=== PATIENT | male | born 1960 | race Caucasian/White ===

== ENCOUNTER 2021-01-30 13:25 | Inpatient (IN) ==
[2021-01-30] MEDS ORDERED: dexAMETHasone**PF** 10 MG/ML VIAL IV ONE (13:55)
[2021-01-30] MEDS ORDERED: FAMOTIDINE 20MG IV PUSH 20 MG/5 ML SYR IV STA (13:55)
[2021-01-30] MEDS ORDERED: TRANEXAMIC ACID / 0.7% NACL 1,000 MG/100 ML BAG IV STA (13:57)
[2021-01-30] MEDS ORDERED: SODIUM CHLORIDE 0.9% 500 ML IV SCH (14:00)
--- NOTE | 2021-01-30 14:16 | Emergency Department Note ---
Impression & Plan Angioedema ED Provider Note NAME: KATINA HAYES AGE: 60 SEX: M : 1960 ARRIVES VIA: Walk-In INFORMANT: Patient, ED PROVIDER(S): Brady Rowe DO CHIEF COMPLAINT: Tongue swelling HPI: The patient is a 60-year-old male who awoke this morning and started noticing tongue swelling. The patient states it is mostly the left side of his tongue. He also notices swelling in the floor of his mouth. He was recently started on a new medication which is an MELVIN inhibitor. He does not have a history of angioedema in the past. He denies having any fever or coughing. He does state he has some difficulty breathing. He denies having any chest pain or lower extremity swelling. He did take 50 mg of Benadryl prior to coming to the emergency department. He did call his primary care physician and was referred to the emergency department. The patient states his symptoms are moderate. They were not improved minimally with the Benadryl. 1500: The patient reports that he was recently started on diclofenac and was taking lisinopril for a long time. Lisinopril is not a new medication for him. But the recent medication that he started on is the new medication. It sounds though it is diclofenac ROS: See above HPI for pertinent positives & negatives. A total of 10 systems reviewed and were otherwise negative. PAST MEDICAL HISTORY: See Below PAST SURGICAL HISTORY: See Below FAMILY HISTORY: See Below SOCIAL HISTORY: See Below HOME MEDICATIONS: See Below ALLERGIES: See Below VITALS: See Below PHYSICAL EXAMINATION: GENERAL: The patient is awake and alert. The patient is somewhat anxious appe aring. EYES: The conjunctivae are clear. The pupils are round and reactive. EARS, NOSE, MOUTH AND THROAT: The nose is without any evidence of any deformity. There is significant angioedema noted of the left side of the tongue. There is some tongue protrusion noted. There is also some swelling of the left side of the floor of the mouth. NECK: The neck is nontender and supple. There is no stridor. RESPIRATORY: Normal respiratory effort is noted there is no evidence of wheezing rhonchi or rales CARDIOVASCULAR: Tachycardic rate with regular rhythm was noted. There was no definite murmur. GASTROINTESTINAL: The abdomen is soft. Abdomen is nontender. MUSCULOSKELETAL/EXTREMITIES: There is no evidence of gross deformity full range of motion is noted in the hips and shoulders. SKIN: There is no obvious evidence of any rash. There are no petechiae, pallor or cyanosis noted. NEUROLOGIC: Patient is awake alert and oriented x3 MEDICAL DECISION MAKING: The patient is a 60-year-old male who presented to the emergency department for an evaluation of angioedema. He was treated in the usual fashion including steroids and H2 blockers. The patient did take antihistamine prior to arrival. The patient was also given TXA. He was reevaluated multiple times. Initially I thought this was secondary to the patient just starting an MELVIN inhibitor however it turns out the patient was on an MELVIN inhibitor for a long time. He was only recently started on diclofenac. I discussed his condition with the airline station agent. I also discussed his case with the on-call [facility]. They have agreed to evaluate the patient in the emergency department for further management and disposition. The patient was reevaluated multiple times. On reevaluation he did feel that he was improving. Triage Nursing notes reviewed. Prior medical records reviewed Vital Signs: reviewed and remarkable for elevated blood pressure. Differential diagnosis: Allergic reaction, anaphylaxis, urticaria, Bolanos-David syndrome, toxic epidermal necrolysis, erythema multiforme, contact dermatitis, cellulitis, angioedema from MELVIN inhibitor as well as other pathologies. ER treatment provided: See below Diagnostics interpreted by me: ECG: EKG was obtained in the emergency department. My interpretation is sinus tachycardia 121 bpm. PVCs were noted. Inferior Q waves were noted. Diffuse ST segment abnormalities were appreciated. This was compared to a tracing from September 10[address]. The ST segment abnormalities appear increased compared to previous. Cardiac Monitoring: An order was placed for continuous cardiac monitoring. The monitor shows a rate of 98 bpm with sinus rhythm. Laboratory studies: As stated above and show below. Imaging studies: See below Consultation(s): 1435: I discussed this case with Yumiko Lopez who is on for the [facility] group. ED COURSE: Procedures: none PDMP:reviewed and no issues Critical Care: I have personally spent greater than 60 minutes of critical care time in the direct management of this patient. This includes bedside care, interpretation of diagnostic studies, and testing, discussion with consultants, patient, and family members, and other required patient management activities. This 60 minutes is in excess of all separately billable procedures. Past Med/Surg History Medical History (Updated 01/31/21 @ 00:23 by Brady Rowe DO) ADD (attention deficit disorder) Bipolar 1 disorder BPH (benign prostatic hyperplasia) Depression High cholesterol Hypertension PFO (patent foramen ovale) Echocardiogram performed 01/16/2021 due to abnormal EKG. Atrial septal aneurysm noted with suggestion of a small PFO. Small right to left shunt t hrough the PFO with Valsalva by saline contrast injection. Patient follows with Dr. Baca of [facility] cardiology. Prostatitis hx of Surgical History History of lumbar laminectomy Hx of colonoscopy Hx of vasectomy Family History Other Hypertension Social History Smoking Status: Current every day smoker Tobacco Type: E-cigarettes / Vaping Cigarettes Per Day: vape every day; Second Hand Exposure: No; Hx Alcohol Use: No Hx Substance Use: No Preferred Language: Japanese Communication Ability: Effective Managed Services Sales Consultant Required: No Beliefs That Will Affect Care: None Current Living Situation: Spouse Feels Safe at Home: Yes Assistive Devices: Denture - Upper and Glasses Allergies Allergies Allergy/AdvReac Type Severity Reaction Status Date / Time No Known Allergies Allergy Unverified 01/30/21 15:23 Home Meds Home Medications Medication Instructions Recorded Confirmed atorvastatin 20 mg PO QAM 09/10/20 01/30/21 bupropion HCl 150 mg PO QAM 09/10/20 01/30/21 hydrochlorothiazide 25 mg PO QAM 09/10/20 01/30/21 lamotrigine 300 mg PO QAM 09/10/20 01/30/21 linaclotide [Linzess] 145 mcg PO QAM 09/10/20 01/30/21 lisinopril 40 mg PO QAM 09/10/20 01/30/21 risperidone 1.5 mg PO HS 09/10/20 01/30/21 tamsulosin 0.8 mg PO QAM 09/10/20 01/30/21 venlafaxine 225 mg PO QAM 09/10/20 01/30/21 atomoxetine [Strattera] 40 mg PO QAM 01/25/21 01/30/21 trazodone 150 mg PO HS 01/25/21 01/30/21 Balance Of Nature 3 tabs PO QAM 01/30/21 01/30/21 acetaminophen [Tylenol Arthritis] 1,300 mg PO Q6H 01/30/21 01/30/21 diclofenac sodium 75 mg PO BID 01/30/21 01/30/21 glucosamine sulfate [Glucosamine] 1,500 mg PO QAM 01/30/21 01/30/21 ibuprofen 800 mg PO Q6H 01/30/21 01/30/21 lidocaine 1 applic TOPICAL DAILY PRN 01/30/21 01/30/21 metaxalone 800 mg PO TID PRN 01/30/21 01/30/21 Results & Data (ED) Vital Signs Vital Signs - 24 hr 01/30/21 13:30 01/30/21 13:47 01/30/21 13:49 Temperature 36.4 C L Temperature Source Skin Pulse Rate 93 H 120 H 120 H Pulse Rate from SpO2 Sensor 120 H 119 H Respiratory Rate 18 17 20 Respiratory Effort / Characteristics Non-Labored Spontaneous Respiratory Depth Normal Respiratory Pattern Regular Blood Pressure 124/80 130/89 Blood Pressure Mean 94 102 Blood Pressure Position Sitting Pulse Oximetry 94 96 96 Oxygen Delivery Method Room Air Sepsis Recent Fever Within 48 Hours No Sepsis New/Unexplained Change in Mental Status N/A Sepsis Action Taken by Nursing No Action Required 01/30/21 13:59 01/30/21 14:00 01/30/21 14:01 Temperature Temperature Source Pulse Rate 122 H 122 H 123 H Pulse Rate from SpO2 Sensor 122 H 123 H Respiratory Rate 20 23 Respiratory Effort / Characteristics Respiratory Depth Respiratory Pattern Blood Pressure 140/100 Blood Pressure Mean 113 Blood Pressure Position Pulse Oximetry 95 92 92 Oxygen Delivery Method Room Air Sepsis Recent Fever Within 48 Hours Sepsis New/Unexplained Change in Mental Status Sepsis Action Taken by Nursing 01/30/21 14:30 01/30/21 14:31 Temperature Temperature Source Pulse Rate 110 H 109 H Pulse Rate from SpO2 Sensor 110 H 109 H Respiratory Rate 20 22 Respiratory Effort / Characteristics Respiratory Depth Respiratory Pattern Blood Pressure 138/92 Blood Pressure Mean 107 Blood Pressure Position Pulse Oximetry 94 94 Oxygen Delivery Method Sepsis Recent Fever Within 48 Hours Sepsis New/Unexplained Change in Mental Status Sepsis Action Taken by Jail Medications Current Medication List: was personally reviewed by me Laboratory Data Attestation: I reviewed the patient's lab results. Result diagrams: 01/30/21 14:11 01/30/21 14:11 Lab Results 01/30/21 01/30/21 01/30/21 Range/Units 14:11 14:11 14:11 WBC 9.77 (4.8-10.8) K/uL RBC 3.73 L (4.7-6.1) M/uL Hgb 11.8 L (14.0-18.0) g/dL Hct 35.9 L (42-52) % MCV 96.2 (80-100) fL MCH 31.6 (25-34) pg MCHC 32.9 (32-36) g/dL RDW Std Deviation 50.5 H (36.4-46.3) fL RDW Coeff of Jerri 14.1 (11.5-14.5) % Plt Count 310 (130-400) K/uL MPV 9.2 (7.4-10.4) fL Immature Gran % (Auto) 0.4 % Neut % (Auto) 80.3 % Lymph % (Auto) 12.5 % Henderson % (Auto) 6.0 % Eos % (Auto) 0.6 % Baso % (Auto) 0.2 % Neut # (Auto) 7.84 H (1.4-6.5) K/uL Lymph # (Auto) 1.22 (1.2-3.4) K/uL Henderson # (Auto) 0.59 (0.11-0.59) K/uL Eos # (Auto) 0.06 (0-0.5) K/uL Baso # (Auto) 0.02 (0-0.2) K/uL Immature Gran # (Auto) 0.04 H (0.00-0.02) K/uL PT 11.0 (9.0-12.0) Seconds INR 1.1 (0.9-1.1) APTT 27.5 (21.0-31.0) Seconds PTT Ratio 1.0 Sodium (136-145) mmol/L Potassium (3.5-5.1) mmol/L Chloride (98-107) mmol/L Carbon Dioxide (21-32) mmol/L Anion Gap (3-11) BUN (7-18) mg/dl Creatinine (0.6-1.4) mg/dl Est Cr Clr Drug Dosing ml/min Est GFR ( Amer) ml/min Est GFR (Non-Af Amer) ml/min BUN/Creatinine Ratio (10-20) Glucose (70-99) mg/dl Calcium (8.5-10.1) mg/dl Total Bilirubin (0.2-1) mg/dl AST (15-37) U/L ALT (12-78) U/L Alkaline Phosphatase (45-117) U/L Troponin I (0-0.045) ng/ml Total Protein (6.4-8.2) gm/dl Albumin (3.4-5.0) gm/dl Globulin (2.5-4.0) gm/dl Albumin/Globulin Ratio (0.9-2) Blood Type O Negative Antibody Screen NEGATIVE 01/30/21 Range/Units 14:11 WBC (4.8-10.8) K/uL RBC (4.7-6.1) M/uL Hgb (14.0-18.0) g/dL Hct (42-52) % MCV (80-100) fL MCH (25-34) pg MCHC (32-36) g/dL RDW Std Deviation (36.4-46.3) fL RDW Coeff of Jerri (11.5-14.5) % Plt Count (130-400) K/uL MPV (7.4-10.4) fL Immature Gran % (Auto) % Neut % (Auto) % Lymph % (Auto) % Henderson % (Auto) % Eos % (Auto) % Baso % (Auto) % Neut # (Auto) (1.4-6.5) K/uL Lymph # (Auto) (1.2-3.4) K/uL Henderson # (Auto) (0.11-0.59) K/uL Eos # (Auto) (0-0.5) K/uL Baso # (Auto) (0-0.2) K/uL Immature Gran # (Auto) (0.00-0.02) K/uL PT (9.0-12.0) Seconds INR (0.9-1.1) APTT (21.0-31.0) Seconds PTT Ratio Sodium 137 (136-145) mmol/L Potassium 3.0 L (3.5-5.1) mmol/L Chloride 105 (98-107) mmol/L Carbon Dioxide 23 (21-32) mmol/L Anion Gap 9.0 (3-11) BUN 23 H (7-18) mg/dl Creatinine 1.32 (0.6-1.4) mg/dl Est Cr Clr Drug Dosing 69.9 ml/min Est GFR ( Amer) 67.5 ml/min Est GFR (Non-Af Amer) 58.2 ml/min BUN/Creatinine Ratio 17.0 (10-20) Glucose 124 H (70-99) mg/dl Calcium 9.2 (8.5-10.1) mg/dl Total Bilirubin 0.5 (0.2-1) mg/dl AST 10 L (15-37) U/L ALT 17 (12-78) U/L Alkaline Phosphatase 43 L (45-117) U/L Troponin I < 0.015 (0-0.045) ng/ml Total Protein 6.7 (6.4-8.2) gm/dl Albumin 3.2 L (3.4-5.0) gm/dl Globulin 3.5 (2.5-4.0) gm/dl Albumin/Globulin Ratio 0.9 (0.9-2) Blood Type Antibody Screen Administered Medications Acetaminophen (Acetaminophen 500 Mg Tab) 1,000 mg PO Q8 REDDY Stop: 03/01/21 18:39 Last Admin: 01/30/21 19:45 Dose: 1,000 mg Documented by: [id number] Enoxaparin Sodium (Enoxaparin Inj 40 Mg/0.4 Ml Syr) 40 mg SQ Q24H REDDY Stop: 03/01/21 20:59 Last Admin: 01/30/21 19:46 Dose: 40 mg Documented by: [id number] Risperidone (Risperidone 0.5 Mg Tablet) 1.5 mg PO HS REDDY Stop: 03/01/21 20:59 Last Admin: 01/30/21 19:46 Dose: 1.5 mg Documented by: [id number] Trazodone HCl (Trazodone Hcl 50 Mg Tab) 150 mg PO HS REDDY Stop: 03/01/21 20:59 Last Admin: 01/30/21 19:46 Dose: 150 mg Documented by: [id number] Discontinued Medications Cetirizine HCl (Cetirizine Hcl 10 Mg Tablet) 10 mg PO [id number] REDDY Stop: 01/30/21 21:00 Last Admin: 01/30/21 18:42 Dose: 10 mg Documented by: [id number] Dexamethasone Sodium Phosphate (DexamethasonePf 10 Mg/Ml Vial) 10 mg IV NOW ONE Stop: 01/30/21 13:56 Last Admin: 01/30/21 14:09 Dose: 10 mg Documented by: [id number] Diphenhydramine HCl (Diphenhydramine Capsule 25 Mg Cap) 25 mg PO NOW STA Stop: 01/30/21 22:50 Last Admin: 01/30/21 22:51 Dose: 25 mg Documented by: [id number] Sodium Chloride (Nss) 500 mls @ 999 mls/hr IV .Q31M REDDY Stop: 01/30/21 14:30 Last Infusion: 01/30/21 15:08 Dose: 0 mls/hr Documented by: [id number] Admin: 01/30/21 14:09 Dose: 999 mls/hr Documented by: [id number] Famotidine (Pepcid 20mg Iv Push) 20 mg in 5 mls @ 2.5 mls/min IV NOW STA Stop: 01/30/21 13:56 Last Admin: 01/30/21 14:09 Dose: 2.5 mls/min Documented by: [id number] Tranexamic Acid (Tranexamic Acid / 0.7% Nacl) 1,000 mg in 100 mls @ 600 mls/hr IV NOW STA Stop: 01/30/21 14:06 Last Infusion: 01/30/21 15:08 Dose: 0 mls/hr Documented by: [id number] Admin: 01/30/21 14:09 Dose: 600 mls/hr Documented by: [id number] Labetalol HCl (Labetalol Hcl Iv 5 Mg/Ml 20ml) 10 mg IV NOW STA Stop: 01/30/21 18:36 Last Admin: 01/30/21 20:31 Dose: Not Given Documented by: [id number] Imaging Data Radiologist's Impression: Chest X-Ray 01/30/21 13:55 XR chest 1V portable HISTORY: 60 years-old Male tonmgue swelling acute shortness of breath with tongue swelling COMPARISON: Chest radiograph 02/02/2014 TECHNIQUE: Portable AP view of the chest FINDINGS: Cardiomediastinal and hilar silhouettes appear to be unchanged with asymmetric right hilar prominence. No pneumothorax, pleural effusion, airspace consolidation or overt pulmonary edema. Bones of the chest appear grossly intact. Degenerative changes of the shoulders and spine. IMPRESSION: No acute process. ACT 112: Negative or not required by law. The above report was generated using voice recognition software. It may contain grammatical, syntax or spelling errors. Electronically signed by: Randy Matthews M.D. 01/30/2021 2:28 PM Discharge Plan Visit Data Chief Complaint: Facial Injury/Pain Stated Complaint: SWELLING LEFT SIDE OF TONGUE,REF BY DOC ED Provider: Brady Rowe Discharge Problem: Angioedema Patient Disposition: Admitted As Inpatient Condition: Good Discharge Instructions Interventions: ED Discharge Assessment Last Done: 01/30/21 17:31 Discharge Problem: Angioedema Qualifiers: Encounter type: initial encounter Qualified Code(s): T78.3XXA - Angioneurotic edema, initial encounter
--- NOTE | 2021-01-30 14:29 | XRay Report ---
XR chest 1V portable HISTORY: 60 years-old Male tonmgue swelling acute shortness of breath with tongue swelling COMPARISON: Chest radiograph 02/02/2014 TECHNIQUE: Portable AP view of the chest FINDINGS: Cardiomediastinal and hilar silhouettes appear to be unchanged with asymmetric right hilar prominence . No pneumothorax, pleural effusion, airspace consolidation or overt pulmonary edema. Bones of the ch est appear grossly intact. Degenerative changes of the shoulders and spine. IMPRESSION: No acute process. ACT 112: Negative or not required by law. The above report was generated using voice recognition software. It may contain grammatical, syntax o r spelling errors. Electronically signed by: Randy Matthews M.D. 01/30/2021 2:28 PM
--- NOTE | 2021-01-30 14:40 | Critical Care Consultation ---
Date of Consultation January 30, 2021 Assessment & Plan (1) Angioedema: Type and screen pending for possible 2 units FFP Serial exams Low threshold for early intubation History of Present Illness Reason for Consultation: Angioedema Requesting Physician: Ang Rowe Attending Physician: Ang Rowe History of Present Illness Patient is a 60-year-old male without significant past medical history who presents with several hour history of tongue swelling he is on an MELVIN inhibitor. At the time of my evaluation his voice is normal he is able to swallow his saliva and manage his secretions. Allergies Allergy/AdvReac Type Severity Reaction Status Date / Time No Known Allergies Allergy Unverified 01/25/21 13:01 Home Medications Medication Instructions Recorded Confirmed Type atorvastatin 20 mg PO QAM 09/10/20 01/25/21 History bupropion HCl 150 mg PO QAM 09/10/20 01/25/21 History hydrochlorothiazide 25 mg PO QAM 09/10/20 01/25/21 History lamotrigine 150 mg PO QAM 09/10/20 01/25/21 History linaclotide [Linzess] 145 mcg PO QAM 09/10/20 01/25/21 History lisinopril 40 mg PO QAM 09/10/20 01/25/21 History risperidone 1.5 mg PO HS 09/10/20 01/25/21 History tamsulosin 0.8 mg PO QAM 09/10/20 01/25/21 History venlafaxine 225 mg PO QAM 09/10/20 01/25/21 History atomoxetine [Strattera] 40 mg PO QAM 01/25/21 01/25/21 History trazodone 150 mg PO HS 01/25/21 01/25/21 History Patient History Medical History ADD (attention deficit disorder) Bipolar 1 disorder Depression High cholesterol Hypertension PFO (patent foramen ovale) Echocardiogram performed 01/16/2021 due to abnormal EKG. Atrial septal aneurysm noted with suggestion of a small PFO. Small right to left shunt through the PFO with Valsalva by saline contrast injection. Patient follows with Dr. Baca of [facility] cardiology. Prostatitis hx of Surgical History History of lumbar laminectomy Hx of colonoscopy Hx of vasectomy Social History Smoking Status: Current every day smoker Tobacco Type: E-cigarettes / Vaping Cigarettes Per Day: vape every day; Second Hand Exposure: No; Hx Alcohol Use: No Hx Substance Use: No Preferred Language: Turkish Communication Ability: Effective Director Non Profit Required: No Beliefs That Will Affect Care: None Current Living Situation: Spouse Feels Safe at Home: Yes Assistive Devices: Denture - Lower and Glasses Review of Systems Review of Systems: All systems reviewed & are unremarkable except as noted in HPI & below Physical Exam Physical Exam: General: Alert. nontoxic. Skin: Warm, dry, Head: Atraumatic Ears, nose, mouth and throat: airway patent, tongue is swollen on the left later al aspect and mild swelling in the right lateral aspect he is still able to speak normally and manage his secretions we will follow with serial exams Cardiovascular: Normal peripheral perfusion Respiratory: no respiratory distress Gastrointestinal: Non distended Musculoskeletal: No deformity Results & Data Results & Data ([facility]) Vital Signs (Past 12 Hours) Vital Signs Temp Pulse Resp BP Pulse Ox 01/30/21 13:59 122 H 20 95 01/30/21 13:49 120 H 20 96 01/30/21 13:47 120 H 17 130/89 96 01/30/21 13:30 36.4 C L 93 H 18 124/80 94 Laboratory Results 01/30/21 01/30/21 01/30/21 Range/Units 14:11 14:11 14:11 WBC Pending RBC Pending Hgb Pending Hct Pending MCV Pending MCH Pending MCHC Pending Plt Count Pending PT Pending INR Pending APTT Pending PTT Ratio Pending Sodium Pending Potassium Pending Chloride Pending Carbon Dioxide Pending Anion Gap Pending BUN Pending Creatinine Pending Est Cr Clr Drug Dosing Pending Est GFR ( Amer) Pending Est GFR (Non-Af Amer) Pending BUN/Creatinine Ratio Pending Glucose Pending Calcium Pending Total Bilirubin Pending AST Pending ALT Pending Alkaline Phosphatase Pending Troponin I Pending Total Protein Pending Albumin Pending Globulin Pending Albumin/Globulin Ratio Pending Blood Type Antibody Screen 01/30/21 Range/Units 14:11 WBC RBC Hgb Hct MCV MCH MCHC Plt Count PT INR APTT PTT Ratio Sodium Potassium Chloride Carbon Dioxide Anion Gap BUN Creatinine Est Cr Clr Drug Dosing Est GFR ( Amer) Est GFR (Non-Af Amer) BUN/Creatinine Ratio Glucose Calcium Total Bilirubin AST ALT Alkaline Phosphatase Troponin I Total Protein Albumin Globulin Albumin/Globulin Ratio Blood Type Pending Antibody Screen Pending Coding Level of Care Code Critical Care 1st 30-74 mins Diagnoses Angioedema T78.3XXA Time Spent (min) 35
--- NOTE | 2021-01-30 14:49 | History & Physical Report ---
Date of Service January 30, 2021 Assessment & Plan (1) Angioedema: This is a 60yo M with a PMH of HTN, HLD, prediabetes, tobacco use, bipolar disorder and other medical problems listed below sent over from [facility] for further evaluation of angioedema. 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 ICU - not in respiratory distress at this time and managing secretions well - low threshold for early intubation Type and screen pending for possible 2 units FFP Serial exams Discontinue lisinopril, possibly diclofenac as well Prescribe EpiPen upon discharge, follow up with chartered accountant for additional testing Zyrtec 10mg BID, Prednisone 40mg daily (2) Hypertension: Discontinued lisinopril Continue hydrochlorothiazide, plan to start amlodipine (3) Mood disorder: Continue venlafaxine, risperidone, lamotrigine, bupropion (4) ADD (attention deficit disorder): Continue Strattera (5) BPH (benign prostatic hyperplasia): Continue tamsulosin DVT Ppx: SQ lovenox Code status: FULL PCP: Thaddeus Butterfield Dispo: Admitted to PCU Patient seen in collaboration with Dr. Espinosa. Please see addendum. History of Present Illness Chief Complaint: angioedema Primary Care Provider: Iggy Butterfield, This is a 60yo M with a PMH of HTN, HLD, prediabetes, tobacco use, bipolar disorder and other medical problems listed below sent over from [facility] for further evaluation of angioedema. Woke up around 330 this morning with a sore throat. Initially thought lymph nodes were swollen. Also endorsed sore throat. When he went to take pills this morning, was having difficulty swallowing and saw a provider at [facility], who sent to ED for further evaluation of angioedema. Has been taking lisinopril for years. Did start diclofenac three days ago for back pain. Was given 50 mg p.o. Benadryl in clinic prior to evaluation in ER. In ER, was given dexamethasone, Pepcid and started on Transexamic acid and is feeling better. Able to speak more easily. Denies any shortness of breath or tightness in his airway. Still feels that his tongue is swollen. Denies any events similar to this in the past. No fever, chills, lightheadedness, headache, chest pain, palpitations, nausea, vomiting, abdominal pain, dysuria, diarrhea or constipation. Allergies Allergy/AdvReac Type Severity Reaction Status Date / Time No Known Allergies Allergy Unverified 01/30/21 15:23 Home Medications Medication Instructions Recorded Confirmed Type atorvastatin 20 mg PO QAM 09/10/20 01/30/21 History bupropion HCl 150 mg PO QAM 09/10/20 01/30/21 History hydrochlorothiazide 25 mg PO QAM 09/10/20 01/30/21 History lamotrigine 300 mg PO QAM 09/10/20 01/30/21 History linaclotide [Linzess] 145 mcg PO QAM 09/10/20 01/30/21 History lisinopril 40 mg PO QAM 09/10/20 01/30/21 History risperidone 1.5 mg PO HS 09/10/20 01/30/21 History tamsulosin 0.8 mg PO QAM 09/10/20 01/30/21 History venlafaxine 225 mg PO QAM 09/10/20 01/30/21 History atomoxetine [Strattera] 40 mg PO QAM 01/25/21 01/30/21 History trazodone 150 mg PO HS 01/25/21 01/30/21 History Balance Of Nature 3 tabs PO QAM 01/30/21 01/30/21 History acetaminophen [Tylenol Arthritis] 1,300 mg PO Q6H 01/30/21 01/30/21 History diclofenac sodium 75 mg PO BID 01/30/21 01/30/21 History glucosamine sulfate [Glucosamine] 1,500 mg PO QAM 01/30/21 01/30/21 History ibuprofen 800 mg PO Q6H 01/30/21 01/30/21 History lidocaine 1 applic TOPICAL DAILY PRN 01/30/21 01/30/21 History metaxalone 800 mg PO TID PRN 01/30/21 01/30/21 History Past Med/Surg History Medical History (Updated 01/30/21 @ 16:01 by Yumiko Lopez PA-C) ADD (attention deficit disorder) Bipolar 1 disorder BPH (benign prostatic hyperplasia) Depression High cholesterol Hypertension PFO (patent foramen ovale) Echocardiogram performed 01/16/2021 due to abnormal EKG. Atrial septal aneurysm noted with suggestion of a small PFO. Small right to left shunt through the PFO with Valsalva by saline contrast injection. Patient follows with Dr. Baca of [facility] cardiology. Prostatitis hx of Surgical History History of lumbar laminectomy Hx of colonoscopy Hx of vasectomy Family History Other Hypertension Social History Smoking Status: Current every day smoker Tobacco Type: E-cigarettes / Vaping Cigarettes Per Day: vape every day; Second Hand Exposure: No; Hx Alcohol Use: No Hx Substance Use: No Preferred Language: Spanish Communication Ability: Effective Food And Drug Inspector Required: No Beliefs That Will Affect Care: None Current Living Situation: Spouse Feels Safe at Home: Yes Assistive Devices: Denture - Upper and Glasses Review of Systems Review of Systems: At least ten systems reviewed and negative except as noted in the HPI. Physical Exam Physical Exam: General Appearance: WD/WN, vitals as above, NAD, sitting up in bed, pleasant, conversing easily Head: normocephalic, atraumatic Eyes: normal inspection, PERRL, conjunctivae normal, anicteric sclerae ENT: external ear and nose normal, + L lateral and posterior tongue swelling. Airway patent, no dysarthria or increased secretions Neck: normal visual inspection, trachea midline, no thyromegaly Respiratory: normal respiratory effort, lungs clear to auscultation, no wheeze, rales, rhonchi. No accessory muscle use Cardiovascular: regular rate, rhythm, no murmur, normal peripheral pulses, no BLE edema. Vessels: no JVD Chest: normal inspection of chest Abdomen/GI: normal bowel sounds, soft, nontender, no hepatosplenomegaly Extremities/Musculoskeletal: no cyanosis or clubbing, extremities motor strength 5/5 Neurologic: PERRL, EOMI, accommodation nl, no face palsy, no dysarthria, CN's II-XI intact bilaterally and moves all extremities Psychiatric: A+Ox3, euthymic affect Skin: no rashes, normal color, warm/dry Results & Data Results & Data ([facility]) Vital Signs (Past 12 Hours) Vital Signs Temp Pulse Resp BP Pulse Ox 01/30/21 13:59 122 H 20 95 01/30/21 13:49 120 H 20 96 01/30/21 13:47 120 H 17 130/89 96 01/30/21 13:30 36.4 C L 93 H 18 124/80 94 Laboratory Results Short CBC 01/30/21 Range/Units 14:11 WBC 9.77 (4.8-10.8) K/uL Hgb 11.8 L (14.0-18.0) g/dL Hct 35.9 L (42-52) % Plt Count 310 (130-400) K/uL BMP 01/30/21 14:11 Sodium 137 Potassium 3.0 L Chloride 105 Carbon Dioxide 23 BUN 23 H Creatinine 1.32 Glucose 124 H Calcium 9.2 Cardiac Enzymes 01/30/21 Range/Units 14:11 Troponin I < 0.015 (0-0.045) ng/ml Liver Function 01/30/21 Range/Units 14:11 Total Bilirubin 0.5 (0.2-1) mg/dl AST 10 L (15-37) U/L ALT 17 (12-78) U/L Alkaline Phosphatase 43 L (45-117) U/L Albumin 3.2 L (3.4-5.0) gm/dl Diagnostic Findings Chest X-Ray 01/30/21 13:55 XR chest 1V portable HISTORY: 60 years-old Male tonmgue swelling acute shortness of breath with tongue swelling COMPARISON: Chest radiograph 02/02/2014 TECHNIQUE: Portable AP view of the chest FINDINGS: Cardiomediastinal and hilar silhouettes appear to be unchanged with asymmetric right hilar prominence. No pneumothorax, pleural effusion, airspace consolidation or overt pulmonary edema. Bones of the chest appear grossly intact. Degenerative changes of the shoulders and spine. IMPRESSION: No acute process. ACT 112: Negative or not required by law. The above report was generated using voice recognition software. It may contain grammatical, syntax or spelling errors. Electronically signed by: Randy Matthews M.D. 01/30/2021 2:28 PM ECG Rhythm: sinus tachycardia Findings: + nonspecific-ST abn Supervising Physician Co-Signing Physician Notes I have seen and examined the patient and have discussed the case with the pr zan above. I agree with the assessment and plan as stated. 60 yo M on ACEI presents with acute tongue swelling after starting diclofenac recently. Uncertain if this was the trigger-no evidence of urticaria and no personal or family history of angioedema. Physical exam wtihin normal limits as above and he is tolerating food. No issues wtih breathing or speaking. Cont antihistamines and steroids until completely clinically resolved. Epi Pen at discharge with consideration for Allergy followup. DO Jesús
[2021-01-30 14:54] LABS: Basophils # (auto) 0.02 K/uL (0-0.2); Basophils % (auto) 0.2 %; Eosinophils # (auto) 0.06 K/uL (0-0.5); Eosinophils % (auto) 0.6 %; Hematocrit (blood only) 35.9 % (42-52); Hemoglobin 11.8 g/dL (14.0-18.0); Immature Granulocytes # (auto) 0.04 K/uL (0.00-0.02); Immature Granulocytes % (auto) 0.4 %; Lymphocytes # (auto) 1.22 K/uL (1.2-3.4); Lymphocytes % (auto) 12.5 %; Mean Corpuscular Hemoglobin 31.6 pg (25-34); Mean Corpuscular Hgb Conc 32.9 g/dL (32-36); Mean Corpuscular Volume 96.2 fL (80-100); Mean Platelet Volume 9.2 fL (7.4-10.4); Monocytes # (auto) 0.59 K/uL (0.11-0.59); Neutrophils # (auto) 7.84 K/uL (1.4-6.5); Neutrophils % (auto) 80.3 %; Platelet Count 310 K/uL (130-400); RDW Coefficient of Variation 14.1 % (11.5-14.5); RDW Standard Deviation 50.5 fL (36.4-46.3); Red Blood Count 3.73 M/uL (4.7-6.1); White Blood Count 9.77 K/uL (4.8-10.8)
[2021-01-30 15:02] LABS: INR 1.1 (0.9-1.1); Partial Thromboplastin Time 27.5 Seconds (21.0-31.0)
[2021-01-30 15:10] LABS: Alanine Aminotransferase 17 U/L (12-78); Albumin Level 3.2 gm/dl (3.4-5.0); Aspartate Aminotransferase 10 U/L (15-37); Blood Urea Nitrogen 23 mg/dl (7-18); Calcium 9.2 mg/dl (8.5-10.1); Carbon Dioxide 23 mmol/L (21-32); Chloride 105 mmol/L (98-107); Creatinine Clr Calc Pharmacy 69.9 ml/min; Est GFR (African American) 67.5 ml/min; Est GFR (Non-African American) 58.2 ml/min; Glucose 124 mg/dl (70-99); Sodium 137 mmol/L (136-145)
[2021-01-30 15:14] LABS: Albumin Globulin Ratio 0.9 (0.9-2); Alkaline Phosphatase 43 U/L (45-117); Bilirubin,Total 0.5 mg/dl (0.2-1); Globulin 3.5 gm/dl (2.5-4.0); Total Protein 6.7 gm/dl (6.4-8.2); Troponin I < 0.015 ng/ml (0-0.045)
[2021-01-30] MEDS ORDERED: CETIRIZINE HCL 10 MG TABLET PO SCH (17:30)
[2021-01-30] MEDS ORDERED: ONDANSETRON INJ 2 MG/ML 2 ML VIAL IV PRN (17:48)
[2021-01-30] MEDS ORDERED: POLYETHYLENE (MIRALAX) 17 GM PACK PO PRN (17:48)
[2021-01-30] MEDS ORDERED: LIDOCAINE 5% OINT 30 GM TUBE TOP PRN (17:48)
[2021-01-30] MEDS ORDERED: LABETALOL HCL IV 5 MG/ML 20ML IV STA (18:35)
[2021-01-30] MEDS: ACETAMINOPHEN 500 MG TAB PO SCH (19:45)
[2021-01-30] MEDS: traZODone HCL 50 MG TAB PO SCH (19:46)
[2021-01-30] MEDS: risperiDONE 0.5 MG TABLET PO SCH (19:46)
[2021-01-30] MEDS: ENOXAPARIN INJ 40 MG/0.4 ML SYR SQ SCH (19:46)
[2021-01-30] MEDS ORDERED: ACETAMINOPHEN 500 MG TAB PO SCH (22:00)
[2021-01-30] MEDS ORDERED: diphenhydrAMINE Capsule 25 MG CAP PO STA (22:49)
[2021-01-31] MEDS: ACETAMINOPHEN 500 MG TAB PO SCH ×5 (03:01→22:17)
--- NOTE | 2021-01-31 06:31 | Electrocardiogram Report ---
Test Reason : Blood Pressure : / mmHG Vent. Rate : 121 BPM Atrial Rate : 121 BPM P-R Int : 170 ms QRS Dur : 098 ms QT Int : 320 ms P-R-T Axes : 029 008 045 degrees QTc Int : 454 ms Sinus tachycardia with Premature ventricular complexes Possible Inferior infarct , age undetermined Abnormal ECG When compared with ECG of 10-SEP-2020 14:15, Premature ventricular complexes are now Present Inferior infarct is now Present Confirmed by Marco Rae ([id number]) on 01/31/2021 6:30:56 AM Referred By: Confirmed By:Marco Rae
[2021-01-31 07:39] LABS: Hematocrit (blood only) 36.6 % (42-52); Mean Corpuscular Hemoglobin 31.3 pg (25-34); Mean Corpuscular Hgb Conc 32.8 g/dL (32-36); Mean Corpuscular Volume 95.6 fL (80-100); Mean Platelet Volume 8.7 fL (7.4-10.4); Platelet Count 293 K/uL (130-400); RDW Coefficient of Variation 14.2 % (11.5-14.5); Red Blood Count 3.83 M/uL (4.7-6.1); White Blood Count 11.05 K/uL (4.8-10.8)
[2021-01-31] MEDS: predniSONE 20 MG TAB PO SCH (08:05)
[2021-01-31] MEDS: LINACLOTIDE 145 MCG CAPSULE PO SCH (08:06)
[2021-01-31] MEDS: VENLAFAXINE HCL XR 75 MG CAPXR PO SCH (08:06)
[2021-01-31] MEDS: TAMSULOSIN HCL 0.4 MG CAP PO SCH (08:06)
[2021-01-31] MEDS: ATOMOXETINE HCL 40 MG CAPSULE PO SCH (08:07)
[2021-01-31] MEDS: ATORVASTATIN 20 MG TAB PO SCH (08:07)
[2021-01-31] MEDS: hydroCHLOROthiazide 25 MG TAB PO SCH (08:07)
[2021-01-31] MEDS: buPROPion SR 150 MG TABCR PO SCH (08:07)
[2021-01-31] MEDS: lamoTRIgine 100 MG TAB PO SCH (08:07)
[2021-01-31 08:21] LABS: BUN Creatinine Ratio 20.2 (10-20); Calcium 9.3 mg/dl (8.5-10.1); Creatinine Clr Calc Pharmacy 101.2 ml/min; Est GFR (African American) 107.2 ml/min; Est GFR (Non-African American) 92.5 ml/min; Potassium 3.6 mmol/L (3.5-5.1)
[2021-01-31] MEDS ORDERED: Nursing to Pharmacy Communication SCH (08:30)
[2021-01-31] MEDS: CETIRIZINE HCL 10 MG TABLET PO SCH ×2 (08:42→17:15)
[2021-01-31] MEDS: amLODIPine BESYLATE 5 MG TAB PO SCH (09:29)
[2021-01-31] MEDS: METOPROLOL TARTRATE 25 MG TAB PO SCH ×2 (09:29→20:33)
[2021-01-31] MEDS ORDERED: NITROGLYCERIN 2% OINTMENT 30GM TUBE EXT ONE (13:02)
[2021-01-31] MEDS ORDERED: ALUMINUM/MAGNESIUM SUSP 30 ML UDC PO PRN (14:03)
[2021-01-31] MEDS ORDERED: PANTOprazole 40 MG TAB PO SCH (14:15)
--- NOTE | 2021-01-31 14:17 | Hospitalist Progress Note ---
Date of Service January 31, 2021 Assessment & Plan (1) Angioedema: This is a 60yo M with a PMH of HTN, HLD, prediabetes, tobacco use, bipolar disorder and other medical problems listed below sent over from [facility] for further evaluation of angioedema. 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 - not in respiratory distress at this time and managing secretions well - low threshold for early intubation Type and screen pending for possible 2 units FFP-was not given and is not required Discontinue lisinopril and diclofenac Prescribe EpiPen upon discharge, follow up with customer experience retail clerk for additional testing Zyrtec 10mg BID, Prednisone 40mg daily Clinically much better without any significant swelling of the tongue and her throat (2) Hypertension: Discontinued lisinopril Continue hydrochlorothiazide, plan to start amlodipine Blood pressure noted to be very high following discontinuation of lisinopril Amlodipine 5 mg once daily and Lopressor 25 mg twice daily have been added Nitropaste for as needed use to decrease blood pressure Likely discharge tomorrow if the pressure is controlled (3) Mood disorder: Continue venlafaxine, risperidone, lamotrigine, bupropion (4) ADD (attention deficit disorder): Continue Strattera (5) BPH (benign prostatic hyperplasia): Continue tamsulosin DVT Ppx: SQ lovenox Code status: FULL PCP: Thaddeus Butterfield Dispo: Admitted to PCU Likely discharge tomorrow Admission and Anticipated Discharge Date Admission Date: January 30, 2021 Subjective 01/31/2021 The patient was seen and examined in telemetry unit He has been on lisinopril for years to control blood pressure and was admitted with acute angioedema His tongue swelling and throat swelling has improved a lot and denies any shortness of breath and a problem with swallowing He was noted to have very high blood pressure since this morning of systolic more than 180 and diastolic more than 100 without any symptoms Review of Systems Review of Systems: All systems reviewed and are unremarkable except as noted below Respiratory: no cough and no dyspnea Cardiovascular: no chest pain and no palpitations Physical Exam Physical Exam: Lying in bed comfortably Constitutional: well developed and well nourished; not ill appearing Eyes: PERRL, conjunctivae normal, anicteric sclerae ENMT: external ear and nose normal, oropharynx normal Neck: trachea midline, no thyromegaly Respiratory: no respiratory distress Auscultation: lungs clear to auscultation bilaterally Cardiovascular: Rate/Rhythm: regular rate and regular rhythm Heart Sounds: no murmur Extremities: no edema Gastrointestinal (Abdomen): Inspection/Auscultation: normal bowel sounds Percussion/Palpation: abdomen soft; abdomen nontender Musculoskeletal: No acute arthritis in any joint Neurologic: Alert, awake and oriented x3 Psychiatric: A+Ox3, euthymic affect Lymphatic: no cervical or axillary lymphadenopathy Results & Data Results & Data ([facility]) Vital Signs (Past 12 Hours) Vital Signs Temp Pulse Pulse Resp BP BP Pulse Ox 01/31/21 13:01 75 178/109 H 01/31/21 11:47 36.7 C 93 H 18 95 01/31/21 10:30 87 190/107 H 01/31/21 09:00 97 H 01/31/21 08:00 197/112 H 01/31/21 07:48 36.9 C 95 H 18 96 01/31/21 04:17 36.8 C 100 H 16 174/91 H 96 Laboratory Results Short CBC 01/30/21 01/31/21 Range/Units 14:11 07:28 WBC 9.77 11.05 H (4.8-10.8) K/uL Hgb 11.8 L 12.0 L (14.0-18.0) g/dL Hct 35.9 L 36.6 L (42-52) % Plt Count 310 293 (130-400) K/uL BMP 01/30/21 01/31/21 14:11 07:28 Sodium 137 140 Potassium 3.0 L 3.6 D Chloride 105 108 H Carbon Dioxide 23 24 BUN 23 H 18 Creatinine 1.32 0.90 D Glucose 124 H 104 H Calcium 9.2 9.3 Cardiac Enzymes 01/30/21 Range/Units 14:11 Troponin I < 0.015 (0-0.045) ng/ml Liver Function 01/30/21 Range/Units 14:11 Total Bilirubin 0.5 (0.2-1) mg/dl AST 10 L (15-37) U/L ALT 17 (12-78) U/L Alkaline Phosphatase 43 L (45-117) U/L Albumin 3.2 L (3.4-5.0) gm/dl Medications Administered Current Inpatient Medications Acetaminophen (Acetaminophen 500 Mg Tab) 1,000 mg PO Q8 [facility] Stop: 03/02/21 03:59 Al Hydrox/Mg Hydrox/Simethicone (Aluminum/Magnesium Susp 30 Ml Udc) 30 ml PO Q6H PRN PRN Reason: Dyspepsia Stop: 03/02/21 14:02 Amlodipine Besylate (Amlodipine Besylate 5 Mg Tab) [facility] [place] [facility] [place] 03/02/21 08:59 Last Admin: 01/31/21 09:29 Dose: 5 mg Documented by: Atomoxetine HCl (Atomoxetine Hcl 40 Mg Capsule) 40 mg [place] [facility] [place]: 03/02/21 08:59 Last Admin: 01/31/21 08:07 Dose: 40 mg Documented by: Atorvastatin Calcium (Atorvastatin 20 Mg Tab) 20 mg [facility] [place] [facility] [place]: 03/02/21 08:59 Last Admin: 01/31/21 08:07 Dose: 20 mg Documented by: Bupropion HCl (Bupropion Sr 150 Mg Tabcr) 150 mg [facility] [place] [facility] [place]: 03/02/21 08:59 Last Admin: 01/31/21 08:07 Dose: 150 mg Documented by: Cetirizine HCl (Cetirizine Hcl 10 Mg Tablet) 10 mg PO BID17 [facility] Stop: 03/02/21 08:59 Last Admin: 01/31/21 08:42 Dose: 10 mg Documented by: Enoxaparin Sodium (Enoxaparin Inj 40 Mg/0.4 Ml Syr) 40 mg SQ Q24H [facility] Stop: 03/01/21 20:59 Last Admin: 01/30/21 19:46 Dose: 40 mg Documented by: Hydrochlorothiazide (Hydrochlorothiazide 25 Mg Tab) 25 [facility] [place]: 03/02/21 08:59 Last Admin: 01/31/21 08:07 Dose: 25 mg Documented by: Lamotrigine (Lamotrigine 100 Mg Tab) 300 mg [facility] [place]: 03/02/21 08:59 Last Admin: 01/31/21 08:07 Dose: 300 mg Documented by: Lidocaine (Lidocaine Hcl 5% Oint 30 Gm Tube) 1 appln TOP DAILY PRN PRN Reason: Pain Stop: 03/01/21 17:47 Linaclotide (Linaclotide 145 Mcg Capsule) 145 mcg [place] [facility] [place]: 03/02/21 08:59 Last Admin: 01/31/21 08:06 Dose: 145 mcg Documented by: Metoprolol Tartrate (Metoprolol Tartrate 25 Mg Tab) 25 mg PO BID [facility] Stop: 03/02/21 08:59 Last Admin: 01/31/21 09:29 Dose: 25 mg Documented by: Ondansetron HCl (Ondansetron Inj 2 Mg/Ml 2 Ml Vial) 4 mg IV Q6H PRN PRN Reason: Nausea Stop: 03/01/21 17:47 Pantoprazole Sodium (Pantoprazole 40 Mg Tab) [address] [facility] Stop: 02/03/21 09:01 Polyethylene Glycol (Polyethylene (Miralax) 17 Gm Pack) 17 gm PO DAILY PRN PRN Reason: Constipation Stop: 03/01/21 17:47 Prednisone (Prednisone 20 Mg Tab) 40 mg PO DAILY [facility] Stop: 03/02/21 08:59 Last Admin: 01/31/21 08:05 Dose: 40 mg Documented by: Risperidone (Risperidone 0.5 Mg Tablet) 1.5 mg PO [facility] Stop: 03/01/21 20:59 Last Admin: 01/30/21 19:46 Dose: 1.5 mg Documented by: Tamsulosin HCl (Tamsulosin Hcl 0.4 Mg Cap) 0.[address] [facility] Stop: 03/02/21 08:59 Last Admin: 01/31/21 08:06 Dose: 0.8 mg Documented by: Trazodone HCl (Trazodone Hcl 50 Mg Tab) 150 mg PO [facility] Stop: 03/01/21 20:59 Last Admin: 01/30/21 19:46 Dose: 150 mg Documented by: Venlafaxine HCl (Venlafaxine Hcl Xr 75 Mg Capxr) 225 [facility] [place]: 03/02/21 08:59 Last Admin: 01/31/21 08:06 Dose: 225 mg Documented by: (1) Angioedema Encounter type: initial encounter Qualified Code(s): T78.3XXA - Angioneurotic edema, initial encounter
[2021-01-31] MEDS: risperiDONE 0.5 MG TABLET PO SCH (20:33)
[2021-01-31] MEDS: traZODone HCL 50 MG TAB PO SCH (20:34)
[2021-01-31] MEDS: FAMOTIDINE 20 MG TAB PO SCH (20:34)
[2021-01-31] MEDS: ENOXAPARIN INJ 40 MG/0.4 ML SYR SQ SCH (20:34)
[2021-02-01] MEDS: ACETAMINOPHEN 500 MG TAB PO SCH (06:12)
[2021-02-01] MEDS: amLODIPine BESYLATE 5 MG TAB PO SCH (07:55)
[2021-02-01] MEDS: ATORVASTATIN 20 MG TAB PO SCH (07:55)
[2021-02-01] MEDS: CETIRIZINE HCL 10 MG TABLET PO SCH (07:55)
[2021-02-01] MEDS: METOPROLOL TARTRATE 25 MG TAB PO SCH (07:55)
[2021-02-01] MEDS: FAMOTIDINE 20 MG TAB PO SCH (07:55)
[2021-02-01] MEDS: buPROPion SR 150 MG TABCR PO SCH (07:55)
[2021-02-01] MEDS: TAMSULOSIN HCL 0.4 MG CAP PO SCH (07:55)
[2021-02-01] MEDS: VENLAFAXINE HCL XR 75 MG CAPXR PO SCH (07:55)
[2021-02-01] MEDS: ATOMOXETINE HCL 40 MG CAPSULE PO SCH (07:56)
[2021-02-01] MEDS: lamoTRIgine 100 MG TAB PO SCH (07:56)
[2021-02-01] MEDS: hydroCHLOROthiazide 25 MG TAB PO SCH (07:56)
[2021-02-01] MEDS: predniSONE 20 MG TAB PO SCH (07:56)
[2021-02-01] MEDS: LINACLOTIDE 145 MCG CAPSULE PO SCH (07:56)
[2021-02-01 08:17] LABS: Hematocrit (blood only) 37.5 % (42-52); Hemoglobin 12.3 g/dL (14.0-18.0); Mean Corpuscular Hemoglobin 32.3 pg (25-34); Mean Corpuscular Hgb Conc 32.8 g/dL (32-36); Mean Corpuscular Volume 98.4 fL (80-100); Mean Platelet Volume 9.2 fL (7.4-10.4); Platelet Count 338 K/uL (130-400); RDW Coefficient of Variation 14.5 % (11.5-14.5); RDW Standard Deviation 51.9 fL (36.4-46.3); Red Blood Count 3.81 M/uL (4.7-6.1)
[2021-02-01 08:48] LABS: BUN Creatinine Ratio 19.7 (10-20); Calcium 9.5 mg/dl (8.5-10.1); Creatinine Clr Calc Pharmacy 99.9 ml/min; Est GFR (African American) 104.4 ml/min; Est GFR (Non-African American) 90.1 ml/min; Potassium 3.4 mmol/L (3.5-5.1)
[2021-02-01] MEDS ORDERED: METOPROLOL TARTRATE 25 MG TAB PO STA (09:37)
[2021-02-01] MEDS ORDERED: hydrALAZINE HCL 20 MG/ML VIAL IV STA (09:48)
--- NOTE | 2021-02-01 13:07 | Hospitalist Progress Note ---
Date of Service February 01, 2021 Assessment & Plan (1) Angioedema: This is a 60yo M with a PMH of HTN, HLD, prediabetes, tobacco use, bipolar disorder and other medical problems listed below sent over from [facility] for further evaluation of angioedema. 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 - not in respiratory distress at this time and managing secretions well - low threshold for early intubation Type and screen pending for possible 2 units FFP-was not given and is not required Discontinue lisinopril and diclofenac Prescribe EpiPen upon discharge, follow up with shed hand for additional testing Zyrtec 10mg BID, Prednisone 40mg daily Clinically much better without any significant swelling of the tongue and her throat Angioedema is resolved and denies any more problem with the throat Will be discharged home this afternoon Try to avoid NSAID use as it can rarely cause angioedema (2) Hypertension: Discontinued lisinopril Continue hydrochlorothiazide, plan to start amlodipine Blood pressure noted to be very high following discontinuation of lisinopril Amlodipine 5 mg once daily and Lopressor 25 mg twice daily have been added Nitropaste for as needed use to decrease blood pressure Likely discharge tomorrow if the pressure is controlled Blood pressure is reasonably controlled with Lopressor 50 mg twice daily and amlodipine 5 mg once daily (3) Mood disorder: Continue venlafaxine, risperidone, lamotrigine, bupropion (4) ADD (attention deficit disorder): Continue Strattera (5) BPH (benign prostatic hyperplasia): Continue tamsulosin DVT Ppx: SQ lovenox Code status: FULL PCP: Thaddeus Butterfield Dispo: Admitted to PCU Will be discharged home this afternoon Admission and Anticipated Discharge Date Admission Date: January 30, 2021 Subjective 01/31/2021 The patient was seen and examined in telemetry unit He has been on lisinopril for years to control blood pressure and was admitted with acute angioedema His tongue swelling and throat swelling has improved a lot and denies any shortness of breath and a problem with swallowing He was noted to have very high blood pressure since this morning of systolic more than 180 and diastolic more than 100 without any symptoms 02/01/2021 The patient was seen and examined in telemetry unit He was noted to have a very high blood pressure this morning, static more than 190 and diastolic more than 110 He was given additional dose of Lopressor 25 mg and the pressure has been improving Denies any symptoms during the high blood pressure Review of Systems Review of Systems: All systems reviewed and are unremarkable except as noted below Physical Exam Physical Exam: Sitting at the edge of the bed without any symptoms Constitutional: well developed and well nourished; not ill appearing Eyes: PERRL, conjunctivae normal, anicteric sclerae ENMT: external ear and nose normal, oropharynx normal Neck: trachea midline, no thyromegaly Respiratory: no respiratory distress Auscultation: lungs clear to auscultation bilaterally Cardiovascular: Rate/Rhythm: regular rate and regular rhythm Heart Sounds: no murmur Extremities: no edema Gastrointestinal (Abdomen): Inspection/Auscultation: normal bowel sounds Percussion/Palpation: abdomen soft; abdomen nontender Neurologic: Alert, awake and oriented x3. No focal sensory and motor deficit appreciated Psychiatric: A+Ox3, euthymic affect Lymphatic: no cervical or axillary lymphadenopathy Results & Data Results & Data ([facility]) Vital Signs (Past 12 Hours) Vital Signs Temp Pulse Pulse Pulse Resp BP BP 02/01/21 12:20 36.7 C 68 19 157/98 H 02/01/21 10:14 80 160/108 H 02/01/21 08:12 36.5 C 73 21 185/135 H 190/113 H 02/01/21 08:00 74 02/01/21 03:12 36.9 C 75 16 164/85 H Pulse Ox 02/01/21 12:20 95 02/01/21 10:14 02/01/21 08:12 96 02/01/21 08:00 02/01/21 03:12 95 Laboratory Results Short CBC 02/01/21 Range/Units 07:59 WBC 13.80 H (4.8-10.8) K/uL Hgb 12.3 L (14.0-18.0) g/dL Hct 37.5 L (42-52) % Plt Count 338 (130-400) K/uL BMP 02/01/21 07:59 Sodium 141 Potassium 3.4 L Chloride 108 H Carbon Dioxide 27 BUN 18 Creatinine 0.92 Glucose 80 Calcium 9.5 Medications Administered Current Inpatient Medications Acetaminophen (Acetaminophen 500 Mg Tab) 1,000 mg PO Q8 [facility] Stop: 03/02/21 03:59 Last Admin: 02/01/21 06:12 Dose: 1,000 mg Documented by: Al Hydrox/Mg Hydrox/Simethicone (Aluminum/Magnesium Susp 30 Ml Udc) 30 ml PO Q6H PRN PRN Reason: Dyspepsia Stop: 03/02/21 14:02 Last Admin: 01/31/21 14:53 Dose: 30 ml Documented by: Amlodipine Besylate (Amlodipine Besylate 5 Mg Tab) [facility] Stop: 03/02/21 08:59 Last Admin: 02/01/21 07:55 Dose: 5 mg Documented by: Atomoxetine HCl (Atomoxetine Hcl 40 Mg Capsule) 40 mg PO QAM [facility] Stop: 03/02/21 08:59 Last Admin: 02/01/21 07:56 Dose: 40 mg Documented by: Atorvastatin Calcium (Atorvastatin 20 Mg Tab) [facility] Stop: 03/02/21 08:59 Last Admin: 02/01/21 07:55 Dose: 20 mg Documented by: Bupropion HCl (Bupropion Sr 150 Mg Tabcr) 150 [facility] Stop: 03/02/21 08:59 Last Admin: 02/01/21 07:55 Dose: 150 mg Documented by: Cetirizine HCl (Cetirizine Hcl 10 Mg Tablet) 10 mg PO BID17 [facility] Stop: 03/02/21 08:59 Last Admin: 02/01/21 07:55 Dose: 10 mg Documented by: Enoxaparin Sodium (Enoxaparin Inj 40 Mg/0.4 Ml Syr) 40 mg SQ Q24H [facility] Stop: 03/01/21 20:59 Last Admin: 01/31/21 20:34 Dose: 40 mg Documented by: Famotidine (Famotidine 20 Mg Tab) 20 mg PO BID [facility] Stop: 03/02/21 20:59 Last Admin: 02/01/21 07:55 Dose: 20 mg Documented by: Hydrochlorothiazide (Hydrochlorothiazide 25 Mg Tab) 25 mg PO QAM [facility] Stop: 03/02/21 08:59 Last Admin: 02/01/21 07:56 Dose: 25 mg Documented by: Lamotrigine (Lamotrigine 100 Mg Tab) 300 mg PO QAM [facility] Stop: 03/02/21 08:59 Last Admin: 02/01/21 07:56 Dose: 300 mg Documented by: Lidocaine (Lidocaine Hcl 5% Oint 30 Gm Tube) 1 appln TOP DAILY PRN PRN Reason: Pain Stop: 03/01/21 17:47 Linaclotide (Linaclotide 145 Mcg Capsule) 145 mcg PO QAM [facility] Stop: 03/02/21 08:59 Last Admin: 02/01/21 07:56 Dose: 145 mcg Documented by: Metoprolol Tartrate (Metoprolol Tartrate 50 Mg Tab) 50 mg PO BID [facility] Stop: 03/03/21 20:59 Ondansetron HCl (Ondansetron Inj 2 Mg/Ml 2 Ml Vial) 4 mg IV Q6H PRN PRN Reason: Nausea Stop: 03/01/21 17:47 Polyethylene Glycol (Polyethylene (Miralax) 17 Gm Pack) 17 gm PO DAILY PRN PRN Reason: Constipation Stop: 03/01/21 17:47 Prednisone (Prednisone 20 Mg Tab) 20 mg PO DAILY [facility] Stop: 03/04/21 08:59 Risperidone (Risperidone 0.5 Mg Tablet) 1.5 mg PO [facility] Stop: 03/01/21 20:59 Last Admin: 01/31/21 20:33 Dose: 1.5 mg Documented by: Tamsulosin HCl (Tamsulosin Hcl 0.4 Mg Cap) 0.8 mg PO QAM [facility] Stop: 03/02/21 08:59 Last Admin: 02/01/21 07:55 Dose: 0.8 mg Documented by: Trazodone HCl (Trazodone Hcl 50 Mg Tab) 150 mg PO [facility] Stop: 03/01/21 20:59 Last Admin: 01/31/21 20:34 Dose: 150 mg Documented by: Venlafaxine HCl (Venlafaxine Hcl Xr 75 Mg Capxr) 225 [facility] Stop: 03/02/21 08:59 Last Admin: 02/01/21 07:55 Dose: 225 mg Documented by: (1) Angioedema Encounter type: initial encounter Qualified Code(s): T78.3XXA - Angioneurotic edema, initial encounter
[2021-02-01] MEDS ORDERED: METOPROLOL TARTRATE 50 MG TAB PO SCH (21:00)
--- NOTE | 2021-02-02 08:34 | Discharge Summary ---
Date of Service February 02, 2021 Admission HPI Per Admitting Provider This is a 60yo M with a PMH of HTN, HLD, prediabetes, tobacco use, bipolar disorder and other medical problems listed below sent over from [facility] for further evaluation of angioedema. Woke up around 330 this morning with a sore throat. Initially thought lymph nodes were swollen. Also endorsed sore throat. When he went to take pills this morning, was having difficulty swallowing and saw a provider at [facility], who sent to ED for further evaluation of angioedema. Has been taking lisinopril for years. Did start diclofenac three days ago for back pain. Was given 50 mg p.o. Benadryl in clinic prior to evaluation in ER. In ER, was given dexamethasone, Pepcid and started on Transexamic acid and is feeling better. Able to speak more easily. Denies any shortness of breath or tightness in his airway. Still feels that his tongue is swollen. Denies any events similar to this in the past. No fever, chills, lightheadedness, headache, chest pain, palpitations, nausea, vomiting, abdominal pain, dysuria, diarrhea or constipation. Admission Exam Per Admitting Provider Physical Exam: General Appearance: WD/WN, vitals as above, NAD, sitting up in bed, pleasant, conversing easily Head: normocephalic, atraumatic Eyes: normal inspection, PERRL, conjunctivae normal, anicteric sclerae ENT: external ear and nose normal, + L lateral and posterior tongue swelling. Airway patent, no dysarthria or increased secretions Neck: normal visual inspection, trachea midline, no thyromegaly Respiratory: normal respiratory effort, lungs clear to auscultation, no wheeze, rales, rhonchi. No accessory muscle use Cardiovascular: regular rate, rhythm, no murmur, normal peripheral pulses, no BLE edema. Vessels: no JVD Chest: normal inspection of chest Abdomen/GI: normal bowel sounds, soft, nontender, no hepatosplenomegaly Extremities/Musculoskeletal: no cyanosis or clubbing, extremities motor strength 5/5 Neurologic: PERRL, EOMI, accommodation nl, no face palsy, no dysarthria, CN's II-XI intact bilaterally and moves all extremities Psychiatric: A+Ox3, euthymic affect Skin: no rashes, normal color, warm/dry Principal Diagnosis Angioedema, very high blood pressure following discontinuation of lisinopril, ADD Discharge Exam Constitutional well developed and well nourished; not ill appearing Eyes PERRL, conjunctivae normal, anicteric sclerae ENMT external ear and nose normal, oropharynx normal Neck trachea midline, no thyromegaly Respiratory no respiratory distress Auscultation: lungs clear to auscultation bilaterally Cardiovascular Rate/Rhythm: regular rate and regular rhythm Heart Sounds: no murmur Extremities: no edema Gastrointestinal (Abdomen) Inspection/Auscultation: normal bowel sounds Percussion/Palpation: abdomen soft; abdomen nontender Psychiatric A+Ox3, euthymic affect Lymphatic no cervical or axillary lymphadenopathy Discharge Data Allergies Allergy/AdvReac Type Severity Reaction Status Date / Time lisinopril AdvReac Angioedema Verified 02/01/21 13:06 Consultations 01/30/21 14:19 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 Knight in ICU - not in respiratory distress at this time and managing secretions well - low threshold for early intubation Type and screen pending for possible 2 units FFP-was not given and is not required Discontinue lisinopril and diclofenac Prescribe EpiPen upon discharge, follow up with pizza delivery for additional testing Zyrtec 10mg BID, Prednisone 40mg daily Clinically much better without any significant swelling of the tongue and her throat Angioedema is resolved and denies any more problem with the throat Will be discharged home this afternoon Try to avoid NSAID use as it can rarely cause angioedema (2) Hypertension: Discontinued lisinopril Continue hydrochlorothiazide, plan to start amlodipine Blood pressure noted to be very high following discontinuation of lisinopril Amlodipine 5 mg once daily and Lopressor 25 mg twice daily have been added Nitropaste for as needed use to decrease blood pressure Likely discharge tomorrow if the pressure is controlled Blood pressure is reasonably controlled with Lopressor 50 mg twice daily and amlodipine 5 mg once daily (3) Mood disorder: Continue venlafaxine, risperidone, lamotrigine, bupropion (4) ADD (attention deficit disorder): Continue Strattera (5) BPH (benign prostatic hyperplasia): Continue tamsulosin DVT Ppx: SQ lovenox Code status: FULL PCP: Thaddeus Butterfield Dispo: Admitted to PCU Will be discharged home this afternoon Home Health Attestation I certify that this patient is under my care and that I, or a physicians clinical project assistant working with me, had a face to-face encounter that meets the home health [id number] encounter requirements with this patient. The encounter with the patient was in whole, or in part, for the following medical condition, which is the primary reason for home health care (list medical condition): I certify that, based on my findings, the following services are medically necessary home health services: My clinical findings support the need for the above services because: Further, I certify that my clinical findings support that this patient is homebound (i.e. absences from home require considerable and taxing effort and are for medical reasons or yazidi services or infrequently or of short duration when for other reasons) because: Certification for Home Health Services: Based on the above findings, I certify that this patient is confined to the home and needs intermittent long-term care, physical therapy and/or speech therapy or continues to need occupational therapy. The patient is under my care, and I have initiated the establishment of the plan of care. This patient will be followed by a physician who will periodically review the plan of care. Total Time Total Time Spent Total Time Spent (In Minutes): 35 minutes Total Time Includes: Examination of the Patient, Discharge Planning, Medication Reconciliation and Communication With Other Providers Discharge Plan Discharge Items Patient Disposition: Home - Self-Care Reason For Visit: angioedema Discharge Diagnosis: Angioedema, very high blood pressure following discontinuation of lisinopril, ADD Condition on Discharge: Good Activity: Resume your previous activity Non-emergency contact: Primary Care Provider Call non-emergency contact if: you have any medication questions and your symptoms worsen Follow-up/Referrals: Mariely Reyes PA-C [Outside Practitioners] - 02/05/21 9:00 am (Dr. Butterfield is unavailable. Please follow up with Mariely Reyes PA-C on Friday02/05/21 at 9:00 am. Please arrive to the office at 8:45 am for your appointment. If you are unable to keep this appointment, please call the office to reschedule at [phone].) Iggy Butterfield, DO [Primary Care Provider] - (Dr. Butterfield is unavailable. ) Diet: Heart Healthy and Low Sodium (2gm) Addtl Attending Provider Instructions: Do not take any more lisinopril and/or ARB Try to avoid diclofenac and other nonsteroidal anti-inflammatory if possible. Take your medications regularly Keep appointment with your primary care doctor You will need to have an appointment with pizza delivery for further testing-please get a referral from your PCP. Pending Studies at Discharge: No Stand-Alone Forms: My [employer], Smoking Cessation Medications and DC Order Prescriptions: New cetirizine 10 mg Tablet 10 mg PO BID17 Qty: 30 RF: 0 amlodipine [Norvasc] 5 mg Tablet 5 mg PO QAM Qty: 30 RF: 0 metoprolol tartrate 50 mg Tablet 50 mg PO BID Qty: 60 RF: 0 prednisone 10 mg tablet 10 mg PO UD Qty: 7 RF: 0 epinephrine 0.1 mg/0.1 mL auto-injector 0.1 mg IM ONCE PRN (Reason: hypersensitivity reaction) Qty: 2 RF: 0 Continued lamotrigine 150 mg tablet 300 mg PO QAM RF: 0 bupropion HCl 150 mg tablet sustained-release 12 hr 150 mg PO QAM RF: 0 atorvastatin 20 mg tablet 20 mg PO QAM RF: 0 venlafaxine 150 mg capsule,extended release 24hr 225 mg PO QAM RF: 0 tamsulosin 0.4 mg capsule 0.8 mg PO QAM RF: 0 hydrochlorothiazide 25 mg tablet 25 mg PO QAM RF: 0 risperidone 1 mg tablet 1.5 mg PO HS RF: 0 Linzess 145 mcg capsule 145 mcg PO QAM RF: 0 atomoxetine [Strattera] 40 mg Capsule 40 mg PO QAM RF: 0 trazodone 150 mg Tablet 150 mg PO HS RF: 0 glucosamine sulfate [Glucosamine] 500 mg Tablet 1,500 mg PO QAM RF: 0 acetaminophen 650 mg Tablet Extended Release 1,300 mg PO Q6H RF: 0 Balance Of Nature 3 tabs PO QAM RF: 0 metaxalone 800 mg tablet 800 mg PO TID PRN (Reason: Muscle Spasm) RF: 0 lidocaine 5 % Ointment 1 applic TOPICAL DAILY PRN (Reason: Pain) RF: 0 Discontinued lisinopril 40 mg tablet 40 mg PO QAM RF: 0 ibuprofen 200 mg Tablet 800 mg PO Q6H RF: 0 diclofenac sodium 75 mg tablet,delayed release (DR/EC) 75 mg PO BID RF: 0 Discharge Orders: Discharge Order (Routine); Ordered 02/01/21 Ordered By: Jammie Monroy/Other Patient Handouts: Controlling High Blood Pressure Admission Data Admit Date/Time: 01/30/21 14:52 Attending Provider: Jammie Gerard Admit Provider: Lenka Espinosa Primary Care Provider: Iggy Butterfield Other Providers: Santy Knight ; Lenka Espinosa Other Interventions: Discharge Summary Assessment (RN) Last Done: 02/01/21 14:29
[2021-02-02] MEDS ORDERED: predniSONE 20 MG TAB PO SCH (09:00)
== END 2021-02-01 14:56 | disposition home or self-care (01) | DRG 916 ==
LOC: ED 13:25 → SUATTDRO 14:52 → 2S 14:52